=== PATIENT | male | born 1955 | race Hispanic/Latino ===

== ENCOUNTER 2018-02-10 04:03 | Inpatient (IN) | payer SELFPAY ==
[~2018-02-10 04:03] MED LIST: Heparin 5,000 UNITS/ML VIAL ONE; Sodium Chloride 0.9% 1,000 ML BAG ONE
[2018-02-10 04:19] LABS: #Eosinphils 0.2 thou/uL (0.0-0.7); #Lymphocytes 2.5 thou/uL (1.20-3.40); #Monocytes 0.8 thou/uL (0.11-0.59); #Neutrophils 9.8 thou/uL (1.40-6.50); %Basophils 0.4 % (0.0-1.0); %Eosinophils 1.2 % (0.0-10.0); %Lymphocytes 18.6 % (21.0-51.0); %Monocytes 5.9 % (0.0-10.0); %Neutrophils 73.9 % (42.0-75.0); Hemoglobin 14.5 g/dL (14.0-18.0); Mean Corpuscular HGB CONC 34.5 g/dL (32.0-36.0); Mean Corpuscular Hemoglobin 29.4 pg (27.0-31.0); Mean Platelet Volume 7.2 fL (7.4-10.4); Platelet Count 159 thou/uL (130-400); RBC Distribution Width 12.1 % (11.5-14.5); Red Blood Cell (RBC) Count 4.93 mill/uL (4.70-6.10); White Blood Cell (WBC) Count 13.2 thou/uL (4.8-10.8)
[2018-02-10] MEDS ORDERED: Lidocaine 1% (PF) 30 ML VIAL ONE (04:25)
[2018-02-10 04:33] LABS: ALT (SGPT) 24 U/L (8-55); AST (SGOT) 12 U/L (5-34); Albumin 4.5 g/dL (3.4-4.8); Alkaline Phosphatase 110 U/L (40-150); Anion Gap 16 mmol/L (10-20); BUN (Urea Nitrogen) 17 mg/dL (8.4-25.7); Bilirubin, Total 0.4 mg/dL (0.2-1.2); CK (CPK) 97 U/L (30-200); Calc. Creatinine Clearance 0 mL/min (70-130); Calcium 9.7 mg/dL (7.8-10.44); Carbon Dioxide 21 mmol/L (23-31); Chloride 101 mmol/L (98-107); Estimated GFR-MDRD 66; Globulin 3.5 g/dL (2.4-3.5); Glucose 483 mg/dL (80-115); Lipase 14 U/L (8-78); Potassium 3.3 mmol/L (3.5-5.1); Sodium 135 mmol/L (136-145)
[2018-02-10 04:37] LABS: CKMB 1.7 ng/mL (0-6.6); Troponin I Less than 0.010 ng/mL (< 0.028)
[2018-02-10] MEDS ORDERED: Atropine Sulfate 1 mg/10 ml Syringe ONE (04:58)
[2018-02-10] MEDS ORDERED: Heparin 10,000 UNITS/1 ML VIAL ONE (05:03)
[2018-02-10] MEDS ORDERED: Aggrastat 12.5 MG/250 ML 250 ML ONE (05:04)
[2018-02-10] MEDS ORDERED: Insulin Regular 300 UNITS/3 ML VIAL SC SCH (05:15)
--- NOTE | 2018-02-10 05:34 | HP ---
DATE OF ADMISSION: 02/10/2018 INDICATION FOR ADMISSION: A 62-year-old patient with acute inferior myocardial infarction ST segment elevation. This 62-year-old gentleman who has not had any previous cardiac history that he is aware of, started having chest pain, he had up to go to the bathroom this morning around 3:30. He also ramirez d some nausea, vomiting, diaphoresis associated with this. He said the pain in his chest, went to th e jaw, 911 was called and shows an inferior myocardial infarction acutely. He was taken to the emerg ency room, he was given 325 mg of aspirin, actually it was given in the ambulance. He was then given 4000 units of heparin in the emergency room. He has had no other medications given. He has pain in the chest that is resolved, but he continues to have pain in his jaws. EKG still shows acute inferi or myocardial infarction with ST segment elevation in the inferior leads. We have no laboratory data at this time. PAST MEDICAL HISTORY: Significant for diabetes, which he has had for many years. 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 SOCIAL HISTORY: He is . He has children who are alive and well, who have no heart disease. He has no alcohol or tobacco abuse. He is disabled due to his amputation previously. FAMILY HISTORY: Noncontributory for any early heart disease. ALLERGIES: None. MEDICATIONS: Include metformin b.i.d. and this is the only medication supposedly he takes. REVIEW OF SYSTEMS: Twelve-point review of systems unremarkable except for he wears glasses, has had the diabetes and the lower extremity amputation. Otherwise, he has had no previous chest pain or sym ptoms noted. PHYSICAL EXAMINATION: GENERAL: Reveals a middle-aged gentleman. VITAL SIGNS: Blood pressure 139/78, heart rate is 69 and regular, respiratory rate is 22. He is afe brile. HEENT: Shows head to be normocephalic and atraumatic. Carotid pulses are present, did not hear any bruits. CHEST: Clear to auscultation at this time without rales, rhonchi or wheezing. CARDIOVASCULAR: Exam reveals regular rate and rhythm, normal S1, S2, no S3, S4. There were no signi ficant murmurs, heaves, thrills, bruits or rubs. ABDOMEN: Soft, nontender, flat. There is no organomegaly or masses noted. Femoral pulses are prese nt. EXTREMITIES: Show no clubbing or cyanosis. He has a right BKA. The left leg appears to be within n ormal limits, did not see any edema. NEUROLOGIC: The patient appears to be intact. SKIN: Warm and dry. EKG as noted. LABORATORY DATA: Pending. IMPRESSION: Acute inferior myocardial infarction. He will be taken emergently to the cardiac cathet erization lab to undergo cardiac catheterization for evaluation of coronary status and most likely wi ll need to undergo angioplasty and stent placement to the right coronary, appears to be inferior myoc ardial infarction. I have explained the procedure and the risks to him to include bleeding, infectio n, possibly a myocardial infarction, worsening CVA, renal insufficiency, allergic contrast reaction, and the possibility of . He understands and agrees to proceed. We will plan for emergent cardi ac catheterization due to the acute inferior ST segment elevation myocardial infarction.
[2018-02-10] MEDS ORDERED: TICAGRELOR 90 MG TABLET ONE (05:49)
[2018-02-10 05:59] VITALS: BMI 29.0
[2018-02-10] MEDS ORDERED: Dextrose 5% in Water 1,000 ML IV PRN ×2 (06:00→06:06)
[2018-02-10] MEDS ORDERED: Dextrose 50% Abboject 50 ML SYRINGE IVP PRN (06:00)
[2018-02-10] MEDS ORDERED: Insulin Regular 300 UNITS/3 ML VIAL SC PRN (06:00)
[2018-02-10] MEDS ORDERED: Milk Of Magnesia 30 ML UDCUP PO PRN (06:01)
[2018-02-10] MEDS ORDERED: Aggrastat 12.5 MG/250 ML 12.5 MG in Premix Bag 1 BAG IVPB SCH (06:01)
[2018-02-10] MEDS ORDERED: Nitroglycerin 0.4 MG TAB (25 Tab Bottle) SL PRN (06:01)
[2018-02-10] MEDS ORDERED: Mag-Al 1200 mg/1200 mg/30 ML UDCUP PO PRN (06:01)
[2018-02-10] MEDS ORDERED: Morphine 4 MG/ML Carpuject SLOW IVP PRN (06:01)
[2018-02-10] MEDS ORDERED: Zolpidem Tartrate 5 MG TAB PO PRN (06:01)
[2018-02-10] MEDS ORDERED: Acetaminophen/Codeine 30-300mg Tablet PO PRN ×2 (06:01)
[2018-02-10] MEDS ORDERED: Dextrose 50% Abboject 50 ML SYRINGE SLOW IVP PRN (06:06)
[2018-02-10] MEDS: Sodium Chloride 0.9% 1,000 ML IV SCH ×3 (06:40→17:35)
[2018-02-10] MEDS ORDERED: Morphine 4 MG/ML VIAL SLOW IVP PRN ×2 (06:45)
[2018-02-10] MEDS ORDERED: Eucerin (Mineral Oil/Petrolatum,White) 30 gm Jar TOP PRN (07:23)
[2018-02-10] MEDS ORDERED: Artificial Tears 18 DROP/0.9 ML EA EYE PRN (07:23)
[2018-02-10] MEDS ORDERED: Loperamide HCl 2 MG CAP PO PRN (07:23)
[2018-02-10] MEDS ORDERED: Senokot 8.6 MG TAB PO PRN (07:23)
[2018-02-10] MEDS ORDERED: Diabetic Tussin 200 MG/10 ML UDCUP PO PRN (07:23)
[2018-02-10] MEDS ORDERED: Loratadine 10 MG TAB PO PRN (07:23)
[2018-02-10] MEDS ORDERED: Sodium Chloride 0.65% Nasal 44 ML BOT EA NARE PRN (07:23)
[2018-02-10] MEDS ORDERED: hydrALAZINE 20 MG/ML VIAL SLOW IVP PRN (07:23)
[2018-02-10] MEDS ORDERED: Acetaminophen 325 MG TAB PO PRN (07:23)
[2018-02-10] MEDS ORDERED: Ondansetron HCl/PF 4 MG/2 ML Vial IVP PRN (07:23)
[2018-02-10] MEDS ORDERED: HYDROcodone/Acetaminophen 5/325 mg Tablet PO PRN (07:23)
[2018-02-10] MEDS ORDERED: Ondansetron ODT 4 MG TAB PO PRN (07:23)
[2018-02-10] MEDS ORDERED: Chloraseptic Spray 180 ml Bottle PO PRN (07:23)
[2018-02-10] MEDS ORDERED: Potassium Chloride 20 MEQ TAB PO SCH (07:30)
[2018-02-10 08:11] LABS: Hemoglobin A1c 10.6 % (4.0-6.0)
[2018-02-10 08:14] LABS: Cardiac Risk 6.7 (Less than 4.5)
--- NOTE | 2018-02-10 08:16 | RAD ---
SINGLE VIEW OF THE CHEST: COMPARISON: None. HISTORY: Left-sided chest pain. FINDINGS: Single view of the chest shows a normal sized cardiomediastinal silhouette. There is no evidence of c onsolidation, mass, or pleural effusion. The bones are unremarkable. IMPRESSION: No evidence of acute cardiopulmonary disease. POS: [facility]
[2018-02-10 08:23] LABS: CKMB 141.3 ng/mL (0-6.6); Troponin I 24.811 ng/mL (< 0.028)
[2018-02-10] MEDS: Lisinopril 2.5 MG TAB PO SCH (08:48)
[2018-02-10] MEDS: Famotidine 20 MG TAB PO SCH ×2 (08:49→22:51)
[2018-02-10] MEDS: Insulin NPH/Reg Insulin Hm 300 UNITS/3 ML VIAL SC SCH ×3 (08:50→17:17)
[2018-02-10] MEDS: Carvedilol 3.125 MG TAB PO SCH ×2 (08:50→20:54)
[2018-02-10] MEDS: TICAGRELOR 90 MG TABLET PO SCH ×2 (09:01→20:54)
--- NOTE | 2018-02-10 10:20 | CON ---
DATE OF CONSULTATION: 02/10/2018 PRIMARY CARE PHYSICIAN: Jb coleman. PRIMARY ATTENDING: Dr. Roque. REASON FOR ADMISSION: Acute inferior wall myocardial infarction. REASON FOR CONSULT: Medical comanagement. HISTORY OF PRESENT ILLNESS: A 62-year-old male who lives in [place]. He was visiting h ere. Last night around 3:30 a.m., he woke up and he went to bathroom. At that time, he was experien cing chest pain associated with nausea, vomiting and diaphoresis. Chest pain also radiated to the ja w and they called 911. The patient was diagnosed with inferior wall myocardial infarction. The vanessa ent was taken to emergency room and he was given aspirin. The patient was also given heparin and sub sequently STEMI protocol was initiated and patient had cardiac catheterization by Dr. Roque. After ca ia catheterization, patient was admitted to ICU and we are consulted for medical comanagement. Patient reports that he has only diabetes and he is taking metformin. He had a right below knee ampu tation due to gangrene from infection. The patient is not taking any cholesterol medicine. He is no t taking any blood pressure medicine. He denies any stroke. He denies any fever or chills. He laly es any UTI symptoms. He denies any constipation, diarrhea, melena or hematochezia. PAST MEDICAL HISTORY: Diabetes type 2 on oral hypoglycemic agent. PAST SURGICAL HISTORY: Right below-knee amputation secondary to gangrene. PAST PSYCHIATRIC HISTORY: Reviewed and negative. SOCIAL HISTORY: Patient is originally from [place]. He is . He has 2 childrens. He rangel s not have any tobacco, alcohol or illicit drug abuse. He is on disability. FAMILY HISTORY: No strong family history of premature coronary artery disease, stroke or cancer. ALLERGIES: No known drug allergy. CURRENT HOME MEDICATIONS: The patient is taking metformin 500 mg p.o. b.i.d. REVIEW OF SYSTEMS: The following complete review of systems was negative, unless otherwise mentioned in the HPI or below: Constitutional: Weight loss or gain, ability to conduct usual activities. Skin: Rash, itching. Eyes: Double vision, pain. ENT/Mouth: Nose bleeding, neck stiffness, pain, tenderness. Cardiovascular: Palpitations, dyspnea on exertion, orthopnea. Respiratory: Shortness of breath, wheezing, cough, hemoptysis, fever or night sweats. Gastrointestinal: Poor appetite, abdominal pain, heartburn, nausea, vomiting, constipation, or diarr hea. Genitourinary: Urgency, frequency, dysuria, nocturia. Musculoskeletal: Pain, swelling. Neurologic/Psychiatric: Anxiety, depression. Allergy/Immunologic: Skin rash, bleeding tendency. Please see my HPI for pertinent positive and negative. All other review of systems reviewed and nega tive except as mentioned in the HPI. ALLERGIES: No known drug allergy. EMERGENCY ROOM COURSE: Patient has received IV fluid and heparin. PHYSICAL EXAMINATION: VITAL SIGNS: On arrival, blood pressure 139/78, pulse 86, respiratory rate 16, temperature 97.5, sat uration 95% on 2 liter oxygen, and weight 81.7 kilograms. GENERAL: The patient is currently alert, awake, no obvious acute distress. HEAD: Normocephalic, atraumatic. EYES: Pupils round, reactive to light. Extraocular muscle intact. ENT: Oropharynx within normal limits. Moist mucous membranes. No oral lesion, no pharyngeal erythe ma, no exudate. NECK: Supple, no JVD, no thyromegaly, no carotid bruit, no jugular venous distention. LUNGS: Clear to auscultation without any rhonchi or rales. CARDIAC: S1 and S2 regular. No murmur, no gallop, no rub. ABDOMEN: Soft, bowel sounds present, nontender, nondistended. No organomegaly, no mass, no suprapub ic tenderness. BACK: Examination unremarkable, no CVA tenderness. EXTREMITIES: Upper extremity; passive movements of all joints are normal. Lower extremity; right be low knee amputation noted. Left lower extremity within normal limits. No edema. NEUROLOGIC: Patient is alert and oriented x3. Cranial nerves II-XII intact. Motor and sensation wi thin normal limit. Reflexes symmetrical. The patient moves all 4 limbs. SKIN: No skin rash. HEMATOLOGICAL SYSTEM: No lymphadenopathy. PSYCHIATRIC: Normal affect. IMAGING DATA AND SIGNIFICANT LABORATORY DATA: 1. EKG based on my review, ST elevation in leads II, III, aVF consistent with inferior wall CO with reciprocal changes in lead I and aVL. 2. CBC: WBC 13.2, hemoglobin 14.5, platelet 159. 3. BMP: Sodium 135, potassium 3.3, chloride 101, carbon dioxide 21, BUN 17, creatinine 1.13, glucos e 483, calcium 9.7. 4. LFT: AST 12, ALT 24, alkaline phosphatase 110, albumin 4.5, lipase 14, CK 97, CK-MB 141.3, tropo vida 24.811, triglyceride 210, cholesterol 274, LDL 191, HDL 41. TSH 0.68. Lipase 14. Serum ketones 0.16. ASSESSMENT AND PLAN/IMPRESSION: 1. Acute inferior wall myocardial infarction, status post cardiac catheterization. Currently, mario cr is in CCU. The patient is on aspirin, Lipitor 40 mg p.o. at bedtime, Coreg 3.125 mg b.i.d., lisin opril 2.5 mg p.o. daily and Brilinta 90 mg p.o. b.i.d. Patient is also on Integrilin drip after card iac catheterization. We will defer management to Cardiology. Patient will have cardiac rehab while in hospital. 2. Diabetes type 2, uncontrolled. At this point, we will hold on metformin because of cardiac caty terization and we will start that after 48 hours. Meanwhile, we will continue with aggressive slidin g scale insulin. We will also start NPH and regular insulin 10 units subcu a.c. Diabetic diet will be given. Hemoglobin A1c checked, which is showing 10.6. 3. Dyslipidemia. Patient's LDL is significantly high. He will need to start on statin therapy with Lipitor 40 mg p.o. at bedtime. 4. Hypokalemia. We will replace potassium chloride 40 mEq p.o. one time dose. 5. Mild hyponatremia likely due to pseudohyponatremia from uncontrolled blood sugar. 6. History of right below knee amputation. 7. Deep venous thrombosis prophylaxis. Patient will need Lovenox for deep venous thrombosis prophyl axis when stable. Currently, patient already received antiplatelet agent with Aggrastat. 8. Gastrointestinal prophylaxis, Pepcid 20 mg p.o. b.i.d. 9. Code status: The patient is FULL CODE. Patient's daughter is surrogate decision maker. Disposition plan based on clinical course. We are expecting patient's stay in hospital more than 2 m idnights. Plan of care discussed with the patient and family member at bedside. Thank you for the consult. We will follow up with you while in hospital.
[2018-02-10] MEDS ORDERED: Iopamidol 370 76% 100 ML VIAL ONE (13:55)
[2018-02-10] MEDS ORDERED: Iopamidol 370 76% 50 ML VIAL FS ONE (13:55)
[2018-02-10 14:27] LABS: Troponin I 88.458 ng/mL (< 0.028)
[2018-02-10 20:03] LABS: Troponin I 116.657 ng/mL (< 0.028)
[2018-02-10] MEDS: Atorvastatin Calcium 40 MG TAB PO SCH (20:52)
[2018-02-10] MEDS: Insulin Regular 300 UNITS/3 ML VIAL SC PRN (21:08)
--- NOTE | 2018-02-10 21:12 | EKG ---
Test Reason : Blood Pressure : / mmHG Vent. Rate : 078 BPM Atrial Rate : 078 BPM P-R Int : 156 ms QRS Dur : 096 ms QT Int : 384 ms P-R-T Axes : 052 -31 -41 degrees QTc Int : 437 ms Normal sinus rhythm Left axis deviation Inferior infarct , possibly acute and notably evolving changes. * ACUTE [place] * Consider right ventricular involvement in acute inferior infarct Abnormal ECG When compared with ECG of 10-FEB-2018 04:05, (Unconfirmed) Significant changes have occurred all consistent with inferolateral infarct in evolution. Confirmed by NASREEN GUDINO ([id number]) on 02/10/2018 9:12:09 PM Referred By: ONI Confirmed By:NASREEN GUDINO
[2018-02-11 05:24] LABS: #Eosinphils 0.1 thou/uL (0.0-0.7); #Lymphocytes 1.4 thou/uL (1.20-3.40); #Monocytes 0.8 thou/uL (0.11-0.59); #Neutrophils 6.9 thou/uL (1.40-6.50); %Basophils 0.2 % (0.0-1.0); %Eosinophils 1.1 % (0.0-10.0); %Lymphocytes 15.3 % (21.0-51.0); %Monocytes 8.6 % (0.0-10.0); %Neutrophils 74.7 % (42.0-75.0); Hemoglobin 11.9 g/dL (14.0-18.0); Mean Corpuscular HGB CONC 33.9 g/dL (32.0-36.0); Mean Corpuscular Hemoglobin 29.3 pg (27.0-31.0); Mean Corpuscular Volume 86.4 fl (80.0-94.0); Platelet Count 127 thou/uL (130-400); RBC Distribution Width 12.5 % (11.5-14.5); Red Blood Cell (RBC) Count 4.04 mill/uL (4.70-6.10); White Blood Cell (WBC) Count 9.2 thou/uL (4.8-10.8)
[2018-02-11 05:32] LABS: ALT (SGPT) 41 U/L (8-55); AST (SGOT) 130 U/L (5-34); Albumin 3.6 g/dL (3.4-4.8); Alkaline Phosphatase 90 U/L (40-150); Anion Gap 8 mmol/L (10-20); BUN (Urea Nitrogen) 22 mg/dL (8.4-25.7); Bilirubin, Total 0.6 mg/dL (0.2-1.2); Calc. Creatinine Clearance 84 mL/min (70-130); Calcium 9.1 mg/dL (7.8-10.44); Carbon Dioxide 26 mmol/L (23-31); Chloride 108 mmol/L (98-107); Estimated GFR-MDRD 68; Globulin 2.7 g/dL (2.4-3.5); Glucose 204 mg/dL (80-115); Potassium 3.9 mmol/L (3.5-5.1); Protein, Total 6.3 g/dL (5.8-8.1); Sodium 138 mmol/L (136-145)
[2018-02-11 05:50] LABS: Bilirubin Small (Negative); Blood, Urine Negative (Negative); Clarity CLEAR (Clear); Glucose, Urine (Dipstick) 500 mg/dL (Negative); Leukocyte Negative (Negative); Nitrite Negative (Negative); Protein, Urine (Dipstick) 30 mg/dL (Neg-Trace); Specific Gravity, Urine 1.043 (1.002-1.036); Urobilinogen 0.2 mg/dL (0.2-1.0)
[2018-02-11 05:53] LABS: Bacteria/HPF None Seen HPF (None Seen); Pathc Cast-AUWi Flag 2.03 (0-2.49); RBC/HPF 0-3 HPF (0-3); Squamous Epithelial 0-3 HPF (0-3)
[2018-02-11 06:04] LABS: Hyaline Casts/LPF 0-3 HYALINE CAST LPF (0-3 Hyaline)
[2018-02-11] MEDS: Insulin Regular 300 UNITS/3 ML VIAL SC PRN ×4 (06:31→20:49)
[2018-02-11] MEDS: Sodium Chloride 0.9% 1,000 ML IV SCH ×2 (06:43→21:06)
[2018-02-11] MEDS: Famotidine 20 MG TAB PO SCH ×2 (08:38→20:51)
--- NOTE | 2018-02-11 08:38 | CON ---
DATE OF CONSULTATION: 02/10/2018 HISTORY OF PRESENT ILLNESS: Mr. Mann is a 62-year-old male consulted because of his presence in [facility]. Apparently, he presented early this morning with ST segment, inferior myocard ial infarction. He has had a right coronary stent placed i am told. He is in the Critical Care Unit after his procedure. PAST MEDICAL HISTORY: 1. Remarkable for diabetes. 2. History of a right BKA. SOCIAL HISTORY: He is a nonsmoker, nondrinker, does not use drugs. FAMILY HISTORY: Negative for lung disease in early age or vascular disease in early age. ALLERGIES: He reports no drug allergies. MEDICATIONS: Prior to admission, he is on metformin. REVIEW OF SYSTEMS: Ten-point review of systems otherwise completely negative. He says he has no juvencio magnolia having pain and he denies shortness of breath. He denies purulent sputum, orthopnea, or hemoptys is. PHYSICAL EXAMINATION: GENERAL: He is in no distress. He is flat in bed. VITAL SIGNS: He is afebrile, heart rate 79, blood pressure 137/68, respiratory rate is 20. HEENT: Pupils are equal. Sclerae is anicteric. NECK: Supple, no lymphadenopathy. LUNGS: Clear. HEART: Regular rhythm. S1 and S2 are normal. No murmur or gallop. ABDOMEN: Soft and nontender. EXTREMITIES: No clubbing, cyanosis, or edema. Moves all extremities equally. LABORATORY DATA: White count 13.3, hemoglobin 14.5, platelets 159. Sodium 135, potassium 3.3, chlor jerry 101, bicarbonate 21, BUN 70, creatinine 1.13, glucose 43. Hemoglobin A1c is 10.6. Troponins 24. IMPRESSION: 1. Myocardial infarction, inferior wall, status post percutaneous intervention with a right coronary stent. 2. Diabetes poorly controlled with hemoglobin A1c of 10. PLAN: Continue supportive care. Stable at this time. ADDENDUM: This is a 70-minute consult. Greater than 50% of the time was spent on the unit coordinat ing care.
[2018-02-11] MEDS: Carvedilol 3.125 MG TAB PO SCH ×2 (08:39→20:54)
[2018-02-11] MEDS: Lisinopril 2.5 MG TAB PO SCH (08:39)
[2018-02-11] MEDS: TICAGRELOR 90 MG TABLET PO SCH ×2 (08:39→20:50)
[2018-02-11] MEDS: Insulin NPH/Reg Insulin Hm 300 UNITS/3 ML VIAL SC SCH ×3 (08:40→18:17)
--- NOTE | 2018-02-11 09:04 | PDOC.CTH ---
<Abby Valadez - Last Filed: 02/11/18 13:15> Cardiology Progress Note - Subjective The pt seen and examined. No overnight events. No cardiac complaints. Per family, he will move to [place] from [facility] after he is discharged from the hospital. - Objective Vital Signs Temp Pulse 02/11/18 08:39 61 02/11/18 03:00 97.7 F 02/10/18 23:00 97.9 F 02/10/18 02/11/18 02/12/18 06:59 06:59 06:59 Intake Total 2737 Output Total 250 1380 Balance -250 1357 - Physical Examination General/Neuro: alert & oriented x3 Neck: no JVD present Lungs: CTA Heart: RRR Abdomen: soft Extremities: other: (No edema; Rt BKA; diminished pulses in BLE) - Telemetry Telemetry Rhythm: SB 48-50s - Labs Result Diagrams: 02/11/18 04:22 02/11/18 04:22 Troponin/CKMB CK-MB (CK-2) 141.3 ng/mL (0-6.6) H* 02/10/18 07:52 Troponin I 116.657 ng/mL (< 0.028) H* 02/10/18 19:01 - Assessment/Plan 1. Inferior IN with s/p Cardiac cath on 02/10/18 with 100% stenosis in dist RCA with BMS x1, 75% stenosis in dist. LAD, 80% in mid LAD, 99% in DM1, 75% in Rt PDA. Stable with Coreg 3.125mg bid, Lisinopril 2.5mg qd, ASA 81mg qd, Brilinta 90mg bid, and Lipitor 40mg. 2. DM type 2 - managed by PCP 3. S/p Rt BKA - diminished pulses in BLE; may need outpt workup. MAR reviewed * Possible d/c home when the pt is stable and possible CABG with stress test within 2-3 wks if the stress test shows abnormal. Review of Systems - Review of Systems Constitutional: reports: no symptoms reported EENTM: reports: no symptoms reported Respiratory: reports: no symptoms reported Cardiac (ROS): reports: no symptoms reported ABD/GI: reports: no symptoms reported : reports: no symptoms reported <Castro Roque - Last Filed: 02/11/18 17:30> Cardiology Progress Note - Objective Vital Signs Temp Pulse Pulse Pulse Resp BP BP 02/11/18 15:00 98.4 F 02/11/18 12:00 98.9 F 02/11/18 11:02 56 L 51 L 101/63 113/54 L 02/11/18 08:39 61 02/11/18 08:00 98.0 F 61 20 Pulse Ox Pulse Ox Pulse Ox 02/11/18 15:00 02/11/18 12:00 02/11/18 11:02 96 98 02/11/18 08:39 02/11/18 08:00 100 02/10/18 02/11/18 02/12/18 06:59 06:59 06:59 Intake Total 2737 240 Output Total 250 1380 Balance -250 1357 240 - Labs Result Diagrams: 02/11/18 04:22 02/11/18 04:22 Troponin/CKMB CK-MB (CK-2) 141.3 ng/mL (0-6.6) H* 02/10/18 07:52 Troponin I Greater than 45.000 ng/mL (< 0.028) H* 02/11/18 04:22 - Assessment/Plan Pt. seen and eval. by me. He complains of SOB this afternoon. He suffered a significant IN. I will add low dose lasix and potassium replacements. If he does well then he can be discharged in the next couple days. I would not advise a stress test. His CAD is so significant that he meets the requirements for CABG without further testing. The inferior wall was akinetic at cath but may improve. I suspect he had showering of embolus to the small vessels and the inferior wall may remain akinetic. I would suggest CABG in 6-8 weeks. Chest is clear. RRR. No edema.
[2018-02-11 10:11] LABS: Troponin I Greater than 45.000 ng/mL (< 0.028)
--- NOTE | 2018-02-11 11:24 | PDOC.PN ---
- Subjective Encounter Start Date: 02/11/18 Encounter Start Time: 09:45 Patient seen and examined. No new complaints. No overnight events - Objective Resuscitation Status: Resuscitation Status FULL:Full Resuscitation MAR Reviewed: Yes Vital Signs & Weight: Vital Signs (12 hours) Temp Pulse Resp Pulse Ox 02/11/18 08:39 61 02/11/18 08:00 98.0 F 61 20 100 02/11/18 03:00 97.7 F Most Recent Monitor Data Heart Rate from ECG 47 NIBP 101/63 NIBP BP-Mean 71 Respiration from ECG 18 SpO2 97 I&O: 02/10/18 02/11/18 02/12/18 06:59 06:59 06:59 Intake Total 2737 120 Output Total 250 1380 Balance -250 1357 120 Result Diagrams: 02/11/18 04:22 02/11/18 04:22 Additional Labs: Accuchecks 02/11/18 02/10/18 02/10/18 06:26 21:08 17:09 POC Glucose 223 H 227 H 271 H EKG Reviewed by me: Yes (nsr) Phys Exam - Physical Examination Constitutional: NAD HEENT: PERRLA, moist MMs, sclera anicteric Neck: no JVD, supple Respiratory: no wheezing, no rales, no rhonchi Cardiovascular: RRR, no significant murmur, no rub Gastrointestinal: soft, non-tender, no distention, positive bowel sounds Musculoskeletal: no edema, pulses present right BKA Neurological: non-focal, normal sensation, moves all 4 limbs Psychiatric: normal affect, A&O x 3 Skin: no rash, normal turgor Dx/Plan (1) AMI inferior wall Status: Acute (2) Hypokalemia Code(s): E87.6 - HYPOKALEMIA Status: Acute (3) Multi-vessel coronary artery stenosis Code(s): I25.10 - ATHSCL HEART DISEASE OF [place] CORONARY ARTERY W/O ANG PCTRS Status: Acute (4) S/P right coronary artery (RCA) stent placement Code(s): Z95.5 - PRESENCE OF CORONARY ANGIOPLASTY IMPLANT AND GRAFT Status: Acute (5) Diabetes type 2, uncontrolled Code(s): E11.65 - TYPE 2 DIABETES MELLITUS WITH HYPERGLYCEMIA Status: Chronic (6) Dyslipidemia Code(s): E78.5 - HYPERLIPIDEMIA, UNSPECIFIED Status: Chronic (7) Hx of below knee amputation Code(s): Z89.519 - ACQUIRED ABSENCE OF UNSPECIFIED LEG BELOW KNEE Status: Chronic (8) Hypertension Code(s): I10 - ESSENTIAL (PRIMARY) HYPERTENSION Status: Chronic - Plan cont current plan of care * medication reviewed as below * symptomatic treatment * cardiology following * diabetes not well controlled, tody will change insulin 70/30, 15 unit SC bid * hemodynemically stable. Review of Systems - Review of Systems ENT: negative: Ear Pain, Ear Discharge, Nose Pain, Nose Discharge, Nose Congestion, Mouth Pain, Mouth Swelling, Throat Pain, Throat Swelling, Other Respiratory: negative: Cough, Dry, Shortness of Breath, Hemoptysis, SOB with Excertion, Pleuritic Pain, Sputum, Wheezing Cardiovascular: negative: chest pain, palpitations, orthopnea, paroxysmal nocturnal dyspnea, edema, light headedness, other Gastrointestinal: negative: Nausea, Vomiting, Abdominal Pain, Diarrhea, Constipation, Melena, Hematochezia, Other Genitourinary: negative: Dysuria, Frequency, Incontinence, Hematuria, Retention , Other Musculoskeletal: negative: Neck Pain, Shoulder Pain, Arm Pain, Back Pain, Hand Pain, Leg Pain, Foot Pain, Other Skin: negative: Rash, Lesions, Mars, Bruising, Other - Medications/Allergies Allergies/Adverse Reactions: Allergies Allergy/AdvReac Type Severity Reaction Status Date / Time No Known Allergies Allergy Verified 02/10/18 05:54 Medications: Current Medications Acetaminophen (Tylenol) 650 mg PO Q4H PRN PRN Reason: Headache/Fever or Mild Pain Acetaminophen/Codeine Phosphate (Tylenol #3) 1 tab PO Q4H PRN PRN Reason: PAIN (1-3) Acetaminophen/Codeine Phosphate (Tylenol #3) 2 tab PO Q4H PRN PRN Reason: PAIN (4-6) Hydrocodone Bitart/Acetaminophen (Auberry 5/325) 1 tab PO Q4H PRN PRN Reason: Moderate Pain (4-6) Last Admin: 02/10/18 20:52 Dose: 1 tab Al Hydroxide/Mg Hydroxide (Maalox) 30 ml PO Q3H PRN PRN Reason: Heartburn or Indigestion Artificial Tears (Tears Naturale) 0 drop EA EYE PRN PRN PRN Reason: Dry Eyes Aspirin (Aspirin Chewable) 81 mg PO DAILY [facility] Last Admin: 02/11/18 08:39 Dose: 81 mg Atorvastatin Calcium (Lipitor) 40 mg PO HS [facility] Last Admin: 02/10/18 20:52 Dose: 40 mg Carvedilol (Coreg) 3.125 mg PO BID [facility] Last Admin: 02/11/18 08:39 Dose: Not Given Dextrose/Water (Dextrose 50%) 25 gm SLOW IVP PRN PRN PRN Reason: Hypoglycemia Famotidine (Pepcid) 20 mg PO BID [facility] Last Admin: 02/11/18 08:38 Dose: 20 mg Glucagon (Glucagon) 1 mg IM PRN PRN PRN Reason: Hypoglycemia Guaifenesin (Robitussin Sf) 200 mg PO Q4H PRN PRN Reason: Cough Hydralazine HCl (Apresoline) 10 mg SLOW IVP Q4H PRN PRN Reason: Systolic BP > 180 Sodium Chloride (Normal Saline 0.9%) 1,000 mls @ 100 mls/hr IV .Q10H [facility] Last Admin: 02/11/18 06:43 Dose: 1,000 mls Dextrose/Water (D5w) 1,000 mls @ 0 mls/hr IV .Q0M PRN; As Directed PRN Reason: Hypoglycemia Insulin Human Isoph/Insulin Regular (Humulin 70/30) 10 units SC AC [facility] Last Admin: 02/11/18 08:40 Dose: 10 unit Insulin Human Regular (Humulin R) 0 units SC .AGGRESSIVE SLIDING PRN PRN Reason: Aggressive Sliding Scale Last Admin: 02/11/18 06:31 Dose: 6 unit Insulin Human Regular (Humulin R) 0 units SC .BEDTIME SLIDING SC PRN PRN Reason: Bedtime Correctional Scale Last Admin: 02/10/18 21:08 Dose: 2 unit Lisinopril (Zestril) 2.5 mg PO DAILY [facility] Last Admin: 02/11/18 08:39 Dose: 2.5 mg Loperamide HCl (Imodium) 2 mg PO PRN PRN PRN Reason: Diarrhea/Loose Stools Loratadine (Claritin) 10 mg PO DAILYPRN PRN PRN Reason: Sinus Symptoms Magnesium Hydroxide (Milk Of Magnesium) 30 ml PO Q12H PRN PRN Reason: Constipation Mineral Oil/White Petrolatum (Eucerin Cream) 0 gm TOP BIDPRN PRN PRN Reason: Dry Skin Morphine Sulfate (Morphine) 2 mg SLOW IVP Q4H PRN PRN Reason: CHEST PAIN (4-6) Morphine Sulfate (Morphine) 4 mg SLOW IVP Q4H PRN PRN Reason: CHEST PAIN (7-10) Nitroglycerin (Nitrostat) 0.4 mg SL Q5MIN PRN PRN Reason: Chest Pain Ondansetron HCl (Zofran Odt) 4 mg PO Q6H PRN PRN Reason: Nausea/Vomiting Ondansetron HCl (Zofran) 4 mg IVP Q6H PRN PRN Reason: Nausea/Vomiting Phenol (Chloraseptic [place] 180 Ml Bot) 0 ml PO PRN PRN PRN Reason: Sore Throat Senna (Senokot) 2 tab PO HSPRN PRN PRN Reason: Constipation Sodium Chloride (Flush - Normal Saline) 10 ml IVF PRN PRN PRN Reason: Saline Flush Sodium Chloride (Flush - Normal Saline) 10 ml IVF Q12HR [facility] Last Admin: 02/11/18 08:38 Dose: 10 ml Sodium Chloride (Hiram Nasal [place] 0.65%) 0 ml EA NARE QIDPRN PRN PRN Reason: Nasal Congestion Ticagrelor (Brilinta) 90 mg PO BID [facility] Last Admin: 02/11/18 08:39 Dose: 90 mg Zolpidem Tartrate (Ambien) 5 mg PO HS PRN PRN Reason: Insomnia
--- NOTE | 2018-02-11 16:46 | PRG ---
DATE OF SERVICE: 02/11/2018 Mr. Mann's blood pressure is in the 90s, heart rate in the 40s-50s, respiratory rate in the 20s. He is in no distress. Not having chest pain. His lungs, heart, and abdomen are unchanged. IMPRESSION: He is status post myocardial infarction with coronary stenting. PLAN: Transfer out to a telemetry bed.
[2018-02-11] MEDS ORDERED: Furosemide 20 MG/2 ML VIAL SLOW IVP SCH (17:30)
[2018-02-11] MEDS: Atorvastatin Calcium 40 MG TAB PO SCH (20:51)
[2018-02-12] MEDS: Insulin NPH/Reg Insulin Hm 300 UNITS/3 ML VIAL SC SCH ×2 (07:30→17:27)
[2018-02-12] MEDS: Sodium Chloride 0.9% 1,000 ML IV SCH (07:33)
[2018-02-12] MEDS: TICAGRELOR 90 MG TABLET PO SCH ×2 (07:36→21:16)
[2018-02-12] MEDS: Potassium Chloride 20 MEQ TAB PO SCH (07:37)
[2018-02-12] MEDS: Furosemide 20 MG TAB PO SCH (07:37)
[2018-02-12] MEDS: Carvedilol 3.125 MG TAB PO SCH ×3 (07:37→21:15)
[2018-02-12] MEDS: Lisinopril 2.5 MG TAB PO SCH (07:37)
[2018-02-12] MEDS: Famotidine 20 MG TAB PO SCH ×2 (07:37→21:16)
--- NOTE | 2018-02-12 08:06 | EKG ---
Test Reason : SITTING UP IN CHAIR Blood Pressure : / mmHG Vent. Rate : 049 BPM Atrial Rate : 049 BPM P-R Int : 140 ms QRS Dur : 082 ms QT Int : 508 ms P-R-T Axes : 047 -42 -54 degrees QTc Int : 458 ms Marked sinus bradycardia Left axis deviation Inferior infarct (cited on or before 10-FEB-2018) Cannot rule out Anterior infarct , age undetermined T wave abnormality, consider lateral ischemia Abnormal ECG When compared with ECG of 10-FEB-2018 07:05, Vent. rate has decreased BY 29 BPM Serial changes of evolving Inferior infarct Present Confirmed by NASREEN GUDINO ([id number]) on 02/12/2018 8:05:59 AM Referred By: ONI Confirmed By:NASREEN GUDINO
--- NOTE | 2018-02-12 08:42 | PDOC.PN ---
- Subjective Encounter Start Date: 02/12/18 Encounter Start Time: 06:30 Patient seen and examined. No new complaints. No overnight events - Objective Resuscitation Status: Resuscitation Status FULL:Full Resuscitation MAR Reviewed: Yes Vital Signs & Weight: Vital Signs (12 hours) Temp Pulse Resp BP Pulse Ox 02/12/18 07:59 98.3 F 61 18 96 02/12/18 07:37 61 110/56 L 02/12/18 07:00 98.3 F 02/12/18 03:00 98.6 F 02/11/18 23:00 98.4 F Most Recent Monitor Data Heart Rate from ECG 58 NIBP 120/71 NIBP BP-Mean 91 Respiration from ECG 17 SpO2 93 I&O: 02/11/18 02/12/18 02/13/18 06:59 06:59 06:59 Intake Total 2737 2394 240 Output Total 1380 1050 100 Balance 1357 1344 140 Result Diagrams: 02/11/18 04:22 02/11/18 04:22 Additional Labs: Accuchecks 02/12/18 02/11/18 02/11/18 06:25 20:49 17:14 POC Glucose 123 H 204 H 179 H 02/11/18 11:31 POC Glucose 220 H EKG Reviewed by me: Yes (sinus bradycardia) Phys Exam - Physical Examination Constitutional: NAD HEENT: PERRLA, moist MMs, sclera anicteric Neck: no JVD, supple Respiratory: no wheezing, no rales, no rhonchi Cardiovascular: RRR, no significant murmur, no rub Gastrointestinal: soft, non-tender, no distention, positive bowel sounds right BKA Neurological: non-focal, normal sensation Lymphatic: no nodes Psychiatric: normal affect, A&O x 3 Skin: no rash, normal turgor Dx/Plan (1) AMI inferior wall Status: Acute (2) Hypokalemia Code(s): E87.6 - HYPOKALEMIA Status: Acute (3) Multi-vessel coronary artery stenosis Code(s): I25.10 - ATHSCL HEART DISEASE OF [place] CORONARY ARTERY W/O ANG PCTRS Status: Acute (4) S/P right coronary artery (RCA) stent placement Code(s): Z95.5 - PRESENCE OF CORONARY ANGIOPLASTY IMPLANT AND GRAFT Status: Acute (5) Diabetes type 2, uncontrolled Code(s): E11.65 - TYPE 2 DIABETES MELLITUS WITH HYPERGLYCEMIA Status: Chronic (6) Dyslipidemia Code(s): E78.5 - HYPERLIPIDEMIA, UNSPECIFIED Status: Chronic (7) Hx of below knee amputation Code(s): Z89.519 - ACQUIRED ABSENCE OF UNSPECIFIED LEG BELOW KNEE Status: Chronic (8) Hypertension Code(s): I10 - ESSENTIAL (PRIMARY) HYPERTENSION Status: Chronic - Plan cont current plan of care * currently stable with current medical treatment * cardiology to decide about discharge, may be today * medication reviewed as below * symptomatic treatment * transfer to tele. Review of Systems - Review of Systems ENT: negative: Ear Pain, Ear Discharge, Nose Pain, Nose Discharge, Nose Congestion, Mouth Pain, Mouth Swelling, Throat Pain, Throat Swelling, Other Respiratory: negative: Cough, Dry, Shortness of Breath, Hemoptysis, SOB with Excertion, Pleuritic Pain, Sputum, Wheezing Cardiovascular: negative: chest pain, palpitations, orthopnea, paroxysmal nocturnal dyspnea, edema, light headedness, other Gastrointestinal: negative: Nausea, Vomiting, Abdominal Pain, Diarrhea, Constipation, Melena, Hematochezia, Other Genitourinary: negative: Dysuria, Frequency, Incontinence, Hematuria, Retention , Other Musculoskeletal: negative: Neck Pain, Shoulder Pain, Arm Pain, Back Pain, Hand Pain, Leg Pain, Foot Pain, Other Skin: negative: Rash, Lesions, Mars, Bruising, Other - Medications/Allergies Allergies/Adverse Reactions: Allergies Allergy/AdvReac Type Severity Reaction Status Date / Time No Known Allergies Allergy Verified 02/10/18 05:54 Medications: Current Medications Acetaminophen (Tylenol) 650 mg PO Q4H PRN PRN Reason: Headache/Fever or Mild Pain Acetaminophen/Codeine Phosphate (Tylenol #3) 1 tab PO Q4H PRN PRN Reason: PAIN (1-3) Acetaminophen/Codeine Phosphate (Tylenol #3) 2 tab PO Q4H PRN PRN Reason: PAIN (4-6) Hydrocodone Bitart/Acetaminophen ([place] 5/325) 1 tab PO Q4H PRN PRN Reason: Moderate Pain (4-6) Last Admin: 02/10/18 20:52 Dose: 1 tab Al Hydroxide/Mg Hydroxide (Maalox) 30 ml PO Q3H PRN PRN Reason: Heartburn or Indigestion Artificial Tears (Tears Naturale) 0 drop EA EYE PRN PRN PRN Reason: Dry Eyes Aspirin (Aspirin Chewable) 81 mg PO DAILY [facility] Last Admin: 02/12/18 07:37 Dose: 81 mg Atorvastatin Calcium (Lipitor) 40 mg PO HS [facility] Last Admin: 02/11/18 20:51 Dose: 40 mg Carvedilol (Coreg) 3.125 mg PO BID [facility] Last Admin: 02/12/18 07:56 Dose: Not Given Dextrose/Water (Dextrose 50%) 25 gm SLOW IVP PRN PRN PRN Reason: Hypoglycemia Famotidine (Pepcid) 20 mg PO BID [facility] Last Admin: 02/12/18 07:37 Dose: 20 mg Furosemide (Lasix) 20 mg PO DAILY [facility] Last Admin: 02/12/18 07:37 Dose: 20 mg Glucagon (Glucagon) 1 mg IM PRN PRN PRN Reason: Hypoglycemia Guaifenesin (Robitussin Sf) 200 mg PO Q4H PRN PRN Reason: Cough Hydralazine HCl (Apresoline) 10 mg SLOW IVP Q4H PRN PRN Reason: Systolic BP > 180 Sodium Chloride (Normal Saline 0.9%) 1,000 mls @ 100 mls/hr IV .Q10H [facility] Last Admin: 02/12/18 07:33 Dose: 1,000 mls Dextrose/Water (D5w) 1,000 mls @ 0 mls/hr IV .Q0M PRN; As Directed PRN Reason: Hypoglycemia Insulin Human Isoph/Insulin Regular (Humulin 70/30) 15 units SC BID-[facility] Last Admin: 02/12/18 07:30 Dose: 15 units Insulin Human Regular (Humulin R) 0 units SC .AGGRESSIVE SLIDING PRN PRN Reason: Aggressive Sliding Scale Last Admin: 02/11/18 18:17 Dose: 3 unit Insulin Human Regular (Humulin R) 0 units SC .BEDTIME SLIDING SC PRN PRN Reason: Bedtime Correctional Scale Last Admin: 02/11/18 20:49 Dose: 2 unit Lisinopril (Zestril) 2.5 mg PO DAILY [facility] Last Admin: 02/12/18 07:37 Dose: 2.5 mg Loperamide HCl (Imodium) 2 mg PO PRN PRN PRN Reason: Diarrhea/Loose Stools Loratadine (Claritin) 10 mg PO DAILYPRN PRN PRN Reason: Sinus Symptoms Magnesium Hydroxide (Milk Of Magnesium) 30 ml PO Q12H PRN PRN Reason: Constipation Mineral Oil/White Petrolatum (Eucerin Cream) 0 gm TOP BIDPRN PRN PRN Reason: Dry Skin Morphine Sulfate (Morphine) 2 mg SLOW IVP Q4H PRN PRN Reason: CHEST PAIN (4-6) Morphine Sulfate (Morphine) 4 mg SLOW IVP Q4H PRN PRN Reason: CHEST PAIN (7-10) Nitroglycerin (Nitrostat) 0.4 mg SL Q5MIN PRN PRN Reason: Chest Pain Ondansetron HCl (Zofran Odt) 4 mg PO Q6H PRN PRN Reason: Nausea/Vomiting Ondansetron HCl (Zofran) 4 mg IVP Q6H PRN PRN Reason: Nausea/Vomiting Phenol (Chloraseptic [place] 180 Ml Bot) 0 ml PO PRN PRN PRN Reason: Sore Throat Potassium Chloride (K-Dur) 20 meq PO QAM-WM [facility] Last Admin: 02/12/18 07:37 Dose: 20 meq Senna (Senokot) 2 tab PO HSPRN PRN PRN Reason: Constipation Last Admin: 02/11/18 18:23 Dose: 2 tab Sodium Chloride (Flush - Normal Saline) 10 ml IVF PRN PRN PRN Reason: Saline Flush Sodium Chloride (Flush - Normal Saline) 10 ml IVF Q12HR [facility] Last Admin: 02/12/18 07:57 Dose: 10 ml Sodium Chloride ([place] Nasal [place] 0.65%) 0 ml EA NARE QIDPRN PRN PRN Reason: Nasal Congestion Ticagrelor (Brilinta) 90 mg PO BID [facility] Last Admin: 02/12/18 07:36 Dose: 90 mg Zolpidem Tartrate (Ambien) 5 mg PO HS PRN PRN Reason: Insomnia
[2018-02-12] MEDS ORDERED: Carvedilol 3.125 MG TAB PO SCH (09:15)
--- NOTE | 2018-02-12 09:24 | PDOC.CTH ---
<Abby Valadez - Last Filed: 02/12/18 09:13> Cardiology Progress Note - Subjective The pt seen and examined. No overnight events. No cardiac complaints. He stated he still has SOB if he does not wear NC. - Objective Vital Signs Temp Pulse Resp BP Pulse Ox 02/12/18 07:59 98.3 F 61 18 96 02/12/18 07:37 61 110/56 L 02/12/18 07:00 98.3 F 02/12/18 03:00 98.6 F 02/11/18 23:00 98.4 F 02/11/18 02/12/18 02/13/18 06:59 06:59 06:59 Intake Total 2737 2394 240 Output Total 1380 1050 100 Balance 1357 1344 140 - Physical Examination General/Neuro: alert & oriented x3 Neck: no JVD present Lungs: CTA (diminished at bases), other: Heart: RRR Abdomen: soft Extremities: other: (No edema; Rt BKA) - Telemetry Telemetry Rhythm: SB 50s - Labs Result Diagrams: 02/11/18 04:22 02/11/18 04:22 Troponin/CKMB CK-MB (CK-2) 141.3 ng/mL (0-6.6) H* 02/10/18 07:52 Troponin I Greater than 45.000 ng/mL (< 0.028) H* 02/11/18 04:22 - Assessment/Plan 1. Inferior OK with s/p Cardiac cath on 02/10/18 with 100% stenosis in dist RCA with BMS x1, akinetic inferior wall (embolus to the small vessels and the inferior wall may remain akinetic), 75% stenosis in dist. LAD, 80% in mid LAD, 99% in DM1, 75% in Rt PDA. Stable with Lisinopril 2.5mg qd, ASA 81mg qd, Brilinta 90mg bid, and Lipitor 40mg. Coreg 3.125mg is decrease to 1/2 tab BID for bradycardia 2. DM type 2 - managed by PCP 3. S/p Rt BKA - diminished pulses in BLE; may need outpt workup. MAR reviewed * D/c home when the pt is stable and possible CABG in 6-8 weeks without further evaluations due to significant CAD which he meets the requirements for CABG without further testing. Review of Systems - Review of Systems Constitutional: reports: no symptoms reported EENTM: reports: no symptoms reported Respiratory: reports: see HPI Cardiac (ROS): reports: no symptoms reported ABD/GI: reports: no symptoms reported : reports: no symptoms reported Musculoskeletal: reports: no symptoms reported <Castro Roque - Last Filed: 02/12/18 20:13> Cardiology Progress Note - Objective Vital Signs Temp Pulse Pulse BP BP Pulse Ox Pulse Ox 02/12/18 16:00 98.5 F 02/12/18 12:00 98.0 F 02/12/18 10:01 68 56 L 115/64 116/67 96 94 L 02/11/18 02/12/18 02/13/18 06:59 06:59 06:59 Intake Total 2737 2394 1800 Output Total 1380 1050 1250 Balance 1357 1344 550 - Labs Result Diagrams: 02/11/18 04:22 02/11/18 04:22 Troponin/CKMB CK-MB (CK-2) 141.3 ng/mL (0-6.6) H* 02/10/18 07:52 Troponin I Greater than 45.000 ng/mL (< 0.028) H* 02/11/18 04:22 - Assessment/Plan Pt. seen and eval. I agree with the A/P by the BREAKER UNIT ASSEMBLER. Chest clear. RRR. s/p OK. Plan for d/c in next 1-2 days. Echo in 2-4 weeks. Cabg in 4-[address] surgery consult. Pt. will need dietary consult.
[2018-02-12] MEDS: Insulin Regular 300 UNITS/3 ML VIAL SC PRN (17:28)
--- NOTE | 2018-02-12 17:56 | PRG ---
DATE OF SERVICE: 02/12/2018 SUBJECTIVE: Mr. Mann does not have any chest pain. OBJECTIVE: VITAL SIGNS: He is afebrile, heart rate 66, blood pressure 111/65, respiratory rate in the 20s. LUNGS: Clear. HEART: Regular rhythm. ABDOMEN: Soft. LABORATORY DATA: There is no new lab today. IMPRESSION: Myocardial infarction, status post percutaneous intervention, clinically stable to disch arge home and will be determined by Cardiology.
[2018-02-12] MEDS: Atorvastatin Calcium 40 MG TAB PO SCH (21:15)
[2018-02-13] MEDS: Insulin NPH/Reg Insulin Hm 300 UNITS/3 ML VIAL SC SCH ×2 (08:21→17:38)
[2018-02-13] MEDS: Famotidine 20 MG TAB PO SCH (08:22)
[2018-02-13] MEDS: TICAGRELOR 90 MG TABLET PO SCH (08:22)
[2018-02-13] MEDS: Lisinopril 2.5 MG TAB PO SCH (08:22)
[2018-02-13] MEDS: Carvedilol 3.125 MG TAB PO SCH (08:23)
[2018-02-13] MEDS: Furosemide 20 MG TAB PO SCH (08:23)
[2018-02-13] MEDS: Potassium Chloride 20 MEQ TAB PO SCH (08:23)
--- NOTE | 2018-02-13 09:11 | PDOC.PN ---
- Subjective Encounter Start Date: 02/13/18 Encounter Start Time: 06:55 Patient seen and examined. No new complaints. No overnight events - Objective Resuscitation Status: Resuscitation Status FULL:Full Resuscitation MAR Reviewed: Yes Vital Signs & Weight: Vital Signs (12 hours) Temp Pulse Resp BP BP Pulse Ox 02/13/18 08:22 75 02/13/18 08:05 98.2 F 75 18 103/58 L 91 L 02/13/18 04:00 98.2 F 54 L 20 111/61 93 L 02/12/18 21:10 98.4 F 80 18 102/62 94 L Weight Weight 185 lb 6 oz Most Recent Monitor Data Heart Rate from ECG 66 NIBP 111/65 NIBP BP-Mean 73 Respiration from ECG 25 SpO2 96 I&O: 02/12/18 02/13/18 02/14/18 06:59 06:59 06:59 Intake Total 2394 2100 Output Total 1050 1400 Balance 1344 700 Result Diagrams: 02/11/18 04:22 02/11/18 04:22 Additional Labs: Accuchecks 02/13/18 02/12/18 02/12/18 06:03 21:04 17:06 POC Glucose 116 H 145 H 222 H 02/12/18 11:45 POC Glucose 138 H EKG Reviewed by me: Yes (nsr) Phys Exam - Physical Examination Constitutional: NAD HEENT: PERRLA, moist MMs, sclera anicteric Neck: no JVD, supple Respiratory: no wheezing, no rales, no rhonchi Cardiovascular: RRR, no significant murmur, no rub Gastrointestinal: soft, non-tender, no distention, positive bowel sounds Musculoskeletal: no edema, pulses present right BKA Neurological: non-focal, normal sensation Lymphatic: no nodes Psychiatric: normal affect, A&O x 3 Skin: no rash, normal turgor Dx/Plan (1) AMI inferior wall Status: Acute (2) Hypokalemia Code(s): E87.6 - HYPOKALEMIA Status: Acute (3) Multi-vessel coronary artery stenosis Code(s): I25.10 - ATHSCL HEART DISEASE OF [place] CORONARY ARTERY W/O ANG PCTRS Status: Acute (4) S/P right coronary artery (RCA) stent placement Code(s): Z95.5 - PRESENCE OF CORONARY ANGIOPLASTY IMPLANT AND GRAFT Status: Acute (5) Diabetes type 2, uncontrolled Code(s): E11.65 - TYPE 2 DIABETES MELLITUS WITH HYPERGLYCEMIA Status: Chronic (6) Dyslipidemia Code(s): E78.5 - HYPERLIPIDEMIA, UNSPECIFIED Status: Chronic (7) Hx of below knee amputation Code(s): Z89.519 - ACQUIRED ABSENCE OF UNSPECIFIED LEG BELOW KNEE Status: Chronic (8) Hypertension Code(s): I10 - ESSENTIAL (PRIMARY) HYPERTENSION Status: Chronic - Plan cont current plan of care * I spoke with pt with [employer] division director and updated plan of care * medication reviewed as below * symptomatic treatment * discharge per cardiology team. Review of Systems - Review of Systems ENT: negative: Ear Pain, Ear Discharge, Nose Pain, Nose Discharge, Nose Congestion, Mouth Pain, Mouth Swelling, Throat Pain, Throat Swelling, Other Respiratory: negative: Cough, Dry, Shortness of Breath, Hemoptysis, SOB with Excertion, Pleuritic Pain, Sputum, Wheezing Cardiovascular: negative: chest pain, palpitations, orthopnea, paroxysmal nocturnal dyspnea, edema, light headedness, other Gastrointestinal: negative: Nausea, Vomiting, Abdominal Pain, Diarrhea, Constipation, Melena, Hematochezia, Other Genitourinary: negative: Dysuria, Frequency, Incontinence, Hematuria, Retention , Other Musculoskeletal: negative: Neck Pain, Shoulder Pain, Arm Pain, Back Pain, Hand Pain, Leg Pain, Foot Pain, Other Skin: negative: Rash, Lesions, Mars, Bruising, Other - Medications/Allergies Allergies/Adverse Reactions: Allergies Allergy/AdvReac Type Severity Reaction Status Date / Time No Known Allergies Allergy Verified 02/10/18 05:54 Medications: Current Medications Acetaminophen (Tylenol) 650 mg PO Q4H PRN PRN Reason: Headache/Fever or Mild Pain Acetaminophen/Codeine Phosphate (Tylenol #3) 1 tab PO Q4H PRN PRN Reason: PAIN (1-3) Acetaminophen/Codeine Phosphate (Tylenol #3) 2 tab PO Q4H PRN PRN Reason: PAIN (4-6) Last Admin: 02/12/18 19:26 Dose: 2 tab Hydrocodone Bitart/Acetaminophen ([place] 5/325) 1 tab PO Q4H PRN PRN Reason: Moderate Pain (4-6) Last Admin: 02/10/18 20:52 Dose: 1 tab Al Hydroxide/Mg Hydroxide (Maalox) 30 ml PO Q3H PRN PRN Reason: Heartburn or Indigestion Artificial Tears (Tears Naturale) 0 drop EA EYE PRN PRN PRN Reason: Dry Eyes Aspirin (Aspirin Chewable) 81 mg PO DAILY [facility] Last Admin: 02/13/18 08:23 Dose: 81 mg Atorvastatin Calcium (Lipitor) 40 mg PO HS [facility] Last Admin: 02/12/18 21:15 Dose: 40 mg Carvedilol (Coreg) 1.5625 mg PO BID [facility] Last Admin: 02/13/18 08:23 Dose: 1.5625 mg Dextrose/Water (Dextrose 50%) 25 gm SLOW IVP PRN PRN PRN Reason: Hypoglycemia Famotidine (Pepcid) 20 mg PO BID [facility] Last Admin: 02/13/18 08:22 Dose: 20 mg Furosemide (Lasix) 20 mg PO DAILY [facility] Last Admin: 02/13/18 08:23 Dose: 20 mg Glucagon (Glucagon) 1 mg IM PRN PRN PRN Reason: Hypoglycemia Guaifenesin (Robitussin Sf) 200 mg PO Q4H PRN PRN Reason: Cough Hydralazine HCl (Apresoline) 10 mg SLOW IVP Q4H PRN PRN Reason: Systolic BP > 180 Dextrose/Water (D5w) 1,000 mls @ 0 mls/hr IV .Q0M PRN; As Directed PRN Reason: Hypoglycemia Insulin Human Isoph/Insulin Regular (Humulin 70/30) 15 units SC BID-[facility] Last Admin: 02/13/18 08:21 Dose: 15 units Insulin Human Regular (Humulin R) 0 units SC .AGGRESSIVE SLIDING PRN PRN Reason: Aggressive Sliding Scale Last Admin: 02/12/18 17:28 Dose: 6 unit Insulin Human Regular (Humulin R) 0 units SC .BEDTIME SLIDING SC PRN PRN Reason: Bedtime Correctional Scale Last Admin: 02/11/18 20:49 Dose: 2 unit Lisinopril (Zestril) 2.5 mg PO DAILY [facility] Last Admin: 02/13/18 08:22 Dose: 2.5 mg Loperamide HCl (Imodium) 2 mg PO PRN PRN PRN Reason: Diarrhea/Loose Stools Loratadine (Claritin) 10 mg PO DAILYPRN PRN PRN Reason: Sinus Symptoms Magnesium Hydroxide (Milk Of Magnesium) 30 ml PO Q12H PRN PRN Reason: Constipation Mineral Oil/White Petrolatum (Eucerin Cream) 0 gm TOP BIDPRN PRN PRN Reason: Dry Skin Morphine Sulfate (Morphine) 2 mg SLOW IVP Q4H PRN PRN Reason: CHEST PAIN (4-6) Morphine Sulfate (Morphine) 4 mg SLOW IVP Q4H PRN PRN Reason: CHEST PAIN (7-10) Nitroglycerin (Nitrostat) 0.4 mg SL Q5MIN PRN PRN Reason: Chest Pain Ondansetron HCl (Zofran Odt) 4 mg PO Q6H PRN PRN Reason: Nausea/Vomiting Ondansetron HCl (Zofran) 4 mg IVP Q6H PRN PRN Reason: Nausea/Vomiting Phenol (Chloraseptic [place] 180 Ml Bot) 0 ml PO PRN PRN PRN Reason: Sore Throat Potassium Chloride (K-Dur) 20 meq PO QAM-[facility] Last Admin: 02/13/18 08:23 Dose: 20 meq Senna (Senokot) 2 tab PO HSPRN PRN PRN Reason: Constipation Last Admin: 02/11/18 18:23 Dose: 2 tab Sodium Chloride (Flush - Normal Saline) 10 ml IVF PRN PRN PRN Reason: Saline Flush Sodium Chloride (Flush - Normal Saline) 10 ml IVF Q12HR [facility] Last Admin: 02/13/18 08:24 Dose: 10 ml Sodium Chloride ([place] Nasal [place] 0.65%) 0 ml EA NARE QIDPRN PRN PRN Reason: Nasal Congestion Ticagrelor (Brilinta) 90 mg PO BID [facility] Last Admin: 02/13/18 08:22 Dose: 90 mg Zolpidem Tartrate (Ambien) 5 mg PO HS PRN PRN Reason: Insomnia
--- NOTE | 2018-02-13 12:21 | DIS ---
TRANSFER OF CARE NOTE PRIMARY CARE PHYSICIAN: [facility] call admission. DATE OF ADMISSION: 02/10/2018 DATE OF DISCHARGE: 02/13/2018 DISCHARGE DISPOSITION: Home. PRIMARY DISCHARGE DIAGNOSES: 1. Acute inferior wall myocardial infarction. 2. Multivessel coronary artery disease, status post right coronary artery stent placement. 3. Hypokalemia. SECONDARY DISCHARGE DIAGNOSES: Hypertension, history of right below knee amputation, dyslipidemia, d iabetes type 2. PRIMARY PROCEDURE/OPERATION: Cardiac catheterization with stent placement by Dr. Roque in the right c oronary artery. RADIOLOGICAL INVESTIGATION: Chest x-ray showed no acute cardiopulmonary process. SIGNIFICANT LABORATORY DATA: WBC 9.2, hemoglobin 11.9, platelet 127. Sodium 138, creatinine 1.10, A ST 130, ALT 41, alkaline phosphatase 90, albumin 3.6, troponin 116.65. Urinalysis unremarkable. Ser um ketones normal. DISCHARGE MEDICATIONS: Aspirin 81 mg p.o. daily, Brilinta 90 mg p.o. b.i.d., Lipitor 40 mg p.o. at b edtime, Coreg 1.625 mg p.o. b.i.d., Pepcid 20 mg p.o. b.i.d., Lasix 20 mg p.o. daily, NPH insulin 15 units subcu b.i.d., lisinopril 2.5 mg p.o. daily. Metformin 500 mg p.o. b.i.d. CONTRAINDICATIONS: None. CODE STATUS: FULL CODE. INPATIENT CONSULTANTS: Dr. Roque was primary while in hospital. Sound Team was consulted for medical management. Dr. Wynn saw this patient while in CCU. TEST RESULTS PENDING ON DISCHARGE: None. ALLERGIES: No known drug allergy. DISCHARGE PLAN: Post hospital, the patient will follow up with Dr. Roque as instructed. The patient has an appointment with [facility] on 02/20/2018 at 9:00 a.m. HOSPITAL COURSE: The patient is a 62-year-old male who was admitted by Dr. Roque. Please see her H&P for further detail. The patient was admitted for acute chest pain and he was diagnosed with acute i nferior wall NM. In the emergency room a STEMI protocol was initiated and patient underwent cardiac catheterization. The patient had a stent placed in the right coronary artery and at the same time, t he patient was found with multivessel coronary disease. Post-procedure, the patient was admitted in CCU. Post-procedure the patient was continued with Aggrastat drip and the patient was kept on Brilin ta, aspirin, Coreg, lisinopril and statin therapy. As the patient developed little with bradycardia, that is why Coreg dose was reduced. The patient is hemodynamically stable. Sound Team was consulte d for medical comanagement. We started insulin for diabetes control. Upon stabilization, this patie nt was transferred to telemetry floor. He does not have any chest pain. Today, I spoke with the raheem zamora with a construction project engineer and updated about plan of care. He has bare metal stent in RCA and t hat is why I advised him to take Brilinta without any miss and he will follow up with Dr. Roque and Dr Derrick Roque will give a referral to CT surgeon for evaluation of CABG after 4-6 weeks. The patient is seen and examined at bedside today. Please see my progress note from today for furthe r detail. Otherwise, the patient is medically stable.
--- NOTE | 2018-02-13 14:09 | CON ---
DATE OF CONSULTATION: 02/13/2018 HISTORY OF PRESENT ILLNESS: This is a 62-year-old gentleman admitted through the emergency room by Leigh Roque about 2 days ago where she stented a completely occluded right coronary artery. Cardiac enzy mes were significantly elevated with an MB of 141. He was placed on Brilinta. His risk factors incl ude poorly controlled diabetes mellitus with a hemoglobin A1c of 10. The patient also had elevated c holesterol of 274, triglyceride of 210. He had previously 7 months ago undergone a right below-the-k nee amputation in the [place] area where he lives and was due to be fitted for a prosthesis this week. He at the time of catheterization and was found to have severe disease in an obtuse marginal th at was not very big, but probably bypassable, a ramus branch with 70% stenosis and an LAD and first d iagonal with significant disease. Cardiac echo has not been done and the patient is due for discharg e today. MEDICATIONS: At discharge will include metformin 500 b.i.d., Brilinta 90 b.i.d., lisinopril 2.5 a da y, insulin 70/30 15 units b.i.d., Lasix 20 a day, Pepcid 20 b.i.d., Coreg 1.5625 b.i.d., Lipitor 40 a t bedtime, aspirin 81 a day. ALLERGIES: He reports no known allergies. PHYSICAL EXAMINATION: VITAL SIGNS: Alert, cooperative gentleman, somewhat overweight. Height 5 feet 7, weight 185. NECK: No carotid bruits. LUNGS: Clear to auscultation. CARDIAC: Regular rate and rhythm, no murmurs. ABDOMEN: Obese, nontender. EXTREMITIES: Absent popliteal and pedal pulses on the left, absent popliteal pulse on the right with a cnc maintenance technician on his BKA stump. No peripheral edema. ASSESSMENT AND PLAN: The patient could have grafts to the LAD, first diagonal, OM and ramus; however , will need to complete his course of Brilinta prior to considering surgical intervention. The patie nt does not live in this area and may want to consider having his surgical procedure done in [facility].
--- NOTE | 2018-02-13 14:20 | PDOC.CTH ---
<Abby Valadez - Last Filed: 02/13/18 14:21> Cardiology Progress Note - Subjective The pt seen and examined. No overnight events. No cardiac complaints. Per the pt, he already walked with PTs without any cardiac complaints. - Objective Vital Signs Temp Pulse Pulse Pulse Resp BP BP 02/13/18 10:28 58 L 63 130/62 117/64 02/13/18 08:22 75 02/13/18 08:05 98.2 F 75 18 02/13/18 08:00 98.2 F 75 18 02/13/18 04:00 98.2 F 54 L 20 BP Pulse Ox Pulse Ox Pulse Ox 02/13/18 10:28 94 L 94 L 02/13/18 08:22 02/13/18 08:05 103/58 L 91 L 02/13/18 08:00 91 L 02/13/18 04:00 111/61 93 L Weight 185 lb 6 oz 02/12/18 02/13/18 02/14/18 06:59 06:59 06:59 Intake Total 2394 2100 Output Total 1050 1400 Balance 1344 700 - Physical Examination General/Neuro: alert & oriented x3 Neck: no JVD present Lungs: CTA Heart: RRR Abdomen: soft Extremities: other: (No edema; Rt BKA) - Telemetry Telemetry Rhythm: SR 60s - Labs Result Diagrams: 02/11/18 04:22 02/11/18 04:22 Troponin/CKMB CK-MB (CK-2) 141.3 ng/mL (0-6.6) H* 02/10/18 07:52 Troponin I Greater than 45.000 ng/mL (< 0.028) H* 02/11/18 04:22 - Assessment/Plan 1. Inferior NH with s/p Cardiac cath on 02/10/18 with 100% stenosis in dist RCA with BMS x1, akinetic inferior wall (embolus to the small vessels and the inferior wall may remain akinetic), 75% stenosis in dist. LAD, 80% in mid LAD, 99% in DM1, 75% in Rt PDA. Stable with Lisinopril 2.5mg qd, ASA 81mg qd, Brilinta 90mg bid, and Lipitor 40mg. Coreg 3.125mg was decreased to 1/2 tab BID for bradycardia 2. DM type 2 - managed by PCP 3. S/p Rt BKA - diminished pulses in BLE; may need outpt workup. MAR reviewed * From Cardiac standpoint, the pt is stable to be d/[facility] home; The pt already was seen by Dr Aleman for CV consult for possible CABG in 4-[address]. [address] Aleman, the pt can undergo CABG after being on Brilinta for at least 4-6wks. The pt does not need further evaluations due to significant CAD which he meets the requirements for CABG without further testing. * Discharge med: BBloker, Lisinopril, ASA, Brilinta bid, and statin Review of Systems - Review of Systems Constitutional: reports: no symptoms reported EENTM: reports: no symptoms reported Respiratory: reports: no symptoms reported Cardiac (ROS): reports: no symptoms reported ABD/GI: reports: no symptoms reported : reports: no symptoms reported Musculoskeletal: reports: no symptoms reported Skin: reports: no symptoms reported <Castro Roque - Last Filed: 02/13/18 16:35> Cardiology Progress Note - Objective Vital Signs Temp Pulse Pulse Pulse Resp BP BP 02/13/18 15:25 99.2 F 65 16 02/13/18 10:28 58 L 63 130/62 117/64 02/13/18 08:22 75 02/13/18 08:05 98.2 F 75 18 02/13/18 08:00 98.2 F 75 18 BP Pulse Ox Pulse Ox Pulse Ox 02/13/18 15:25 110/61 92 L 02/13/18 10:28 94 L 94 L 02/13/18 08:22 02/13/18 08:05 103/58 L 91 L 02/13/18 08:00 91 L Weight 185 lb 6 oz 02/12/18 02/13/18 02/14/18 06:59 06:59 06:59 Intake Total 2394 2100 Output Total 1050 1400 Balance 1344 700 - Labs Result Diagrams: 02/11/18 04:22 02/11/18 04:22 Troponin/CKMB CK-MB (CK-2) 141.3 ng/mL (0-6.6) H* 02/10/18 07:52 Troponin I Greater than 45.000 ng/mL (< 0.028) H* 02/11/18 04:22 - Assessment/Plan Pt. seen and eval. by me. I agree with the A/P by the DRAFTER PATENT. I will see him back in the office in 1 month and then schedule him for a consult with CT surgery for CABG. He denies any complaints. Chest clear. RRR. Plan for f/u echo to assess LV function.
[2018-02-13 15:57] VITALS: BP 110/61; TEMP 99.2
--- NOTE | 2018-03-21 15:13 | EKG ---
Test Reason : Blood Pressure : / mmHG Vent. Rate : 066 BPM Atrial Rate : 066 BPM P-R Int : 112 ms QRS Dur : 088 ms QT Int : 400 ms P-R-T Axes : 060 055 098 degrees QTc Int : 419 ms Normal sinus rhythm ST elevation consider inferolateral injury or acute infarct * ACUTE [place] * Consider right ventricular involvement in acute inferior infarct ST elevation II, III, aVF ST depression aVL Abnormal ECG Confirmed by KAREY OCHOA D.O. ([id number]), sound editor JAZMYNE DAMICO ([id number]) on 03/21/2018 3:13:36 PM Referred By: Confirmed By:KAREY OCHOA D.O.
== END 2018-02-13 18:34 | disposition home or self-care (01) | DRG 248 ==
LOC: ERS 04:03 → CCL 04:42 → CCU 05:22 → 2NO 02-12 16:58
PROVIDERS: ADMIT Internal Medicine Cardiovascular Disease; ATTEND Internal Medicine Cardiovascular Disease
PROC: 4A023N7 Measurement of Cardiac Sampling and Pressure, Left Heart, Percutaneous Approach (ICD-10-PCS; principal; 2018-02-10)
PROC: 02703DZ Dilation of Coronary Artery, One Artery with Intraluminal Device, Percutaneous Approach (ICD-10-PCS; 2018-02-10)
PROC: B2111ZZ Fluoroscopy of Multiple Coronary Arteries using Low Osmolar Contrast (ICD-10-PCS; 2018-02-10)
PROC: B2151ZZ Fluoroscopy of Left Heart using Low Osmolar Contrast (ICD-10-PCS; 2018-02-10)
PROC: 3E03317 Introduction of Other Thrombolytic into Peripheral Vein, Percutaneous Approach (ICD-10-PCS; 2018-02-10)
DX: I25.10 Atherosclerotic heart disease of native coronary artery without angina pectoris (principal); I21.19 ST elevation (STEMI) myocardial infarction involving other coronary artery of inferior wall; E87.1 Hypo-osmolality and hyponatremia; E11.65 Type 2 diabetes mellitus with hyperglycemia; Z89.511 Acquired absence of right leg below knee; E78.5 Hyperlipidemia, unspecified; I10 Essential (primary) hypertension; E87.6 Hypokalemia
CPT/HCPCS: 36415; 36416; 71045; 80053; 80061; 81001; 82010; 82553; 83036; 83690; 84443; 84484; 85025; 85347; 92928; 92977; 93005; 93010; 93458; 93798; 94760; 96374; A4216; C1725; C1769; C1876; C1887; J0461; J1644; J1815; J1940; J2001; J3246; J7050; Q0162